=== PATIENT | male | born 1975 | race Caucasian/White ===

== ENCOUNTER → 2016-09-01 | Outpatient (CLI) | payer BC ==
--- NOTE | 2016-09-01 15:57 | Diagnostic Imaging Report ---
Indication: BK PAIN Technique: 4 views of the lumbar spine Comparison: None Findings: Vertebral body heights are preserved. Disc spaces are preserved. Bony alignment is normal. There are are small anterior osteophytes at L4-5. The facet joint spaces are preserved. No acute fractures. No dislocations. Impression: Minimal degenerative changes. No acute process
== END | disposition home or self-care (01) ==
LOC: RAD 13:10
DX: M54.9 Dorsalgia, unspecified (principal)
CPT/HCPCS: 72110

== ENCOUNTER 2016-11-25 11:29 | Outpatient (CLI) | payer BC ==
--- NOTE | 2016-11-25 12:33 | Diagnostic Imaging Report ---
Indication: Cough Comparison: None 2 views of the chest obtained. Findings: Cardiomediastinal silhouette and pulmonary vascularity are within normal limits for age. The diaphragmatic contour is smooth and costophrenic angles are sharp. No pleural effusions are identified. The bones are unremarkable. Impression: No acute disease
== END 2016-11-25 13:29 | disposition home or self-care (01) ==
LOC: RAD 11:29
DX: R05 Cough (principal)
CPT/HCPCS: 71020

== ENCOUNTER → 2016-12-25 | Outpatient (CLI) | payer BC ==
--- NOTE | 2016-12-25 15:47 | Diagnostic Imaging Report ---
Indication: Cough Comparison: 11/25/16 2 views of the chest obtained. Findings: Cardiomediastinal silhouette and pulmonary vascularity are within normal limits for age. The diaphragmatic contour is smooth and costophrenic angles are sharp. No pleural effusions are identified. The bones are unremarkable. Impression: No acute disease
== END | disposition home or self-care (01) ==
LOC: RAD 11:28
DX: R05 Cough (principal); Z01.818 Encounter for other preprocedural examination
CPT/HCPCS: 71020